=== PATIENT | male | born 1985 | race African-American/Black ===

== ENCOUNTER 2017-07-20 19:38 | Emergency (ER) | payer SELFPAY ==
[~2017-07-20] VITALS: Ht 165.1 cm; Wt 70.7 kg
[~2017-07-20 19:38] MED LIST: CLEO300C2 PO; DOXY100T PO; LORTA5 PO; OTC HEARTBURN MED PO; SULF-154 PO
[2017-07-20 19:49] VITALS: BP 125/77; PULSE 100; RESP 18; TEMP 98.3; O2SAT 99
--- NOTE | 2017-07-20 20:49 | PD ---
HPI Chief Complaint: Eye Problems/Injury Time Seen by Provider: 20:27 Travel History International Travel<30 days: No Contact w/Intl Traveler<30days: No Traveled to known affect area: No History of Present Illness HPI 31-year-old male presents emergency department for bilateral eyelid swelling for 4 days. He says that the swelling began in his right eyelid but then developed the same swelling in the left eye a day later after rubbing it. States he has a foreign body sensation and a white and bloody discharge whenever he applies pressure the area. Says he does have some blurred vision, depth perception is decreased but he is nearsighted and does not wear corrective lenses as he is prescribed. Denies photophobia, headache, worsening vision, pain with eye movement. He admits he used a friend's ophtho Cipro ointment for 3 days with only mild improvement. He has no other complaints today. PFSH Past Medical History Medical History: Denies Significant Hx Diminished Hearing: No Tetanus Vaccination: > 5 Years Influenza Vaccination: No ?: Not Past Surgical History Tonsillectomy: Yes Tympanostomy Tube: Yes Social History Alcohol Use: Yes (OCC) Tobacco Use: Yes (OCC) Substance Use: No Allergies-Medications (Allergen,Severity, Reaction): Coded Allergies: amoxicillin (Unverified Allergy, Severe, UNKNOWN, 07/20/17) REPORTS HE DOES NOT THINK HE IS ALLERGIC Reported Meds & Prescriptions Reported Meds & Active Scripts Active Clindamycin (Clindamycin HCl) 300 Mg Cap 300 Mg PO TID 10 Days Review of Systems Except as stated in HPI: all other systems reviewed are Neg Physical Exam Narrative GENERAL: Well-nourished, well-developed patient. SKIN: Focused skin assessment warm/dry. HEAD: Normocephalic. EYES: No scleral icterus. Moderate Scleral injection, white scant discharge, no fluctuance of eyelids. no obvious debris. Bilateral upper eyelids edematous and erythematous. Mild TTP to eyelids and right temporal mandibular joint. no proptosis, EOMI without pain, PERRLA. Fluorescein stain without increased uptake, negative Tommie sign NECK: Supple, trachea midline. No JVD or lymphadenopathy. CARDIOVASCULAR: Regular rate and rhythm without murmurs, gallops, or rubs. RESPIRATORY: Breath sounds equal bilaterally. No accessory muscle use. GASTROINTESTINAL: Abdomen soft, non-tender, nondistended. MUSCULOSKELETAL: No cyanosis, or edema. BACK: Nontender without obvious deformity. No CVA tenderness. Data Data Last Documented VS Vital Signs Date Time Temp Pulse Resp B/P (MAP) Pulse Ox O2 Delivery O2 Flow Rate FiO2 07/20/17 19:49 98.3 100 18 125/77 (93) 99 MDM Medical Decision Making Medical Screen Exam Complete: Yes Emergency Medical Condition: Yes Differential Diagnosis orbital cellulitis versus blepharitis versus periorbital cellulitis Narrative Course 31-year-old male with a four-day history of bilateral eyelid swelling and pain and white discharge. Admits to rubbing his eyes throughout the day and working with chemicals without washing his hands. Physical exam demonstrated no evidence of orbital cellulitis but patient advised follow-up with hydro sprayer operator within 2 days and use antibiotics as prescribed. Strongly advised him to return to the emergency department for persistent or worsening infection Diagnosis Primary Impression: Periorbital cellulitis Qualified Codes: L03.213 - Periorbital cellulitis Referrals: Marketing Proposal Specialist Primary Care Physician Additional Instructions: Avoid rubbing or eyes Complete all antibiotics as prescribed. May use warm compress. Follow-up with the hydro sprayer operator within 2 days. If eyes becomes more red, painful, or swollen, or if your vision changes return to the emergency department further treatment. Scripts Clindamycin (Clindamycin) 300 Mg Cap 300 MG PO TID for Infection for 10 Days, CAP 0 Refills Prov: Christian Goodman MD 07/20/17 Disposition: 01 DISCHARGE HOME Condition: Stable Natalia Calabrese Jul 20, 2017 20:49
[2017-07-20] MEDS ORDERED: CLIN1CAP6 PO (20:50)
== END 2017-07-20 21:12 | disposition home or self-care (01) ==
LOC: PHEFT 19:38
DX: L03.213 Periorbital cellulitis (principal); Z72.0 Tobacco use
CPT/HCPCS: 99283